=== PATIENT | female | born 1965 | race American Indian/Alaskan Native ===

== ENCOUNTER 2021-07-14 19:35 | Emergency (ER) | payer SELFPAY ==
[2021-07-14 20:40] VITALS: BP 144/85
[2021-07-14] MEDS ORDERED: IBUPROFEN 600 MG TAB PO ONE (20:52)
[2021-07-14] MEDS ORDERED: ACETAMINOPHEN 500 MG TAB PO ONE (20:52)
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
== END 2021-07-15 01:00 | disposition home or self-care (01) ==
LOC: ED 19:35
DX: S63.634A Sprain of interphalangeal joint of right ring finger, initial encounter (principal); S20.212A Contusion of left front wall of thorax, initial encounter; Z98.890 Other specified postprocedural states; Z79.899 Other long term (current) drug therapy; V89.2XXA Person injured in unspecified motor-vehicle accident, traffic, initial encounter; Y93.89 Activity, other specified; Y92.488 Other paved roadways as the place of occurrence of the external cause; Y99.8 Other external cause status
CPT/HCPCS: 71046; 99283